=== PATIENT | male | born 1975 | race Caucasian/White ===

== ENCOUNTER 2023-05-23 15:09 | Outpatient (CLI) | payer BC, SELFPAY | END 2023-05-23 15:10 | disposition home or self-care (01) | LOC: LKVREF 15:11 | PROVIDERS: PCP Family Medicine; Visit Provider Family Medicine | DX: Z13.0 Encounter for screening for diseases of the blood and blood-forming organs and certain disorders involving the immune mechanism (principal); Z13.1 Encounter for screening for diabetes mellitus | CPT/HCPCS: 80048 ==

== ENCOUNTER 2024-01-02 08:41 | Outpatient (CLI) | payer BC, SELFPAY | END 2024-01-02 08:42 | disposition home or self-care (01) | PROVIDERS: PCP Family Medicine; Visit Provider Family Medicine | DX: Z01.818 Encounter for other preprocedural examination (principal) | CPT/HCPCS: 80048 ==

== ENCOUNTER 2024-03-25 09:04 | Outpatient (CLI) | payer BC, SELFPAY ==
--- NOTE | 2024-03-25 09:15 | MR_ITS ---
[address] [address] Phone:?[phone] Fax:?[phone] Referring Physician Information: Dieudonne Fishman M.D. [address] [facility] [address] Phone:?[phone] Fax:?[phone] Patient:Sukumar Leiva D.Zahira.B:?11/13/1974 Sex:?Male Phone:?[phone] [facility] MRN:?[id number] Exam Date:?03/25/2024 EXAM: MRI of the LEFT SHOULDER, without contrast CLINICAL: Evaluate for rotator cuff tear. COMPARISONS: X-rays dated 03/19/2024. TECHNICAL: Multiplanar multisequence MRI of the left shoulder was obtained. SEDATION: None. CONTRAST: None. FINDINGS: Rotator cuff: Supraspinatus/Infraspinatus: There is mild to moderate tendinosis of the distal supraspinatus and infraspinatus tendons. Partial interstitial insertional tearing is seen to involve the distal supraspinatus tendon extending into the junction with the anterior distal infraspinatus tendon on coronal series 5 image 9-12 involving up to 80% of the tendon thickness. Mild thin linear partial interstitial tearing also involves the remainder of the infraspinatus tendon. No significant fatty atrophy of the muscle bellies. Teres minor: No tendinosis, tear or atrophy. Subscapularis: Mild tendinosis of the tendon without evidence of significant tendon tear. No significant fatty atrophy of the muscle belly. Bursae: Subacromial-subdeltoid: Mild bursal edema. Subcoracoid: No significant bursal fluid. Coracoacromial arch: Acromion morphology: Type I to II. No os acromiale. Acromiohumeral space: Within normal limits. Coracohumeral space: Within normal limits. Biceps tendon, long head: Intraarticular and extraarticular segments intact without rupture, tendinopathy or displacement. Glenohumeral joint: Physiologic volume of joint fluid. Articular cartilage: No discrete chondral defects identified as visualized. Capsule: No convincing evidence of capsular thickening or injury. Labrum: No discrete labral tear identified on this nonarthrogram exam. No perilabral cyst identified. Bones: No suspicious marrow signal alteration, fracture or dislocation. Acromioclavicular joint: No acute injury, arthropathy, or inferior hypertrophy. IMPRESSION: 1. Mild to moderate tendinosis of the distal supraspinatus and infraspinatus tendons. High-grade partial interstitial insertional tearing of the distal supraspinatus tendon extends into the junction with the anterior distal infraspinatus tendon. Mild partial interstitial tearing of the remainder of the infraspinatus tendon. Mild tendinosis of the subscapularis tendon. 2. No additional internal derangement identified. JCZ Electronically signed on 03/25/2024 3:16:00 PM by Franklin Muhammad D.O.
== END 2024-03-25 09:05 | disposition home or self-care (01) ==
LOC: MRI 09:05
PROVIDERS: PCP Family Medicine; Visit Provider Orthopaedic Surgery Sports Medicine
DX: M25.512 Pain in left shoulder (principal); M75.102 Unspecified rotator cuff tear or rupture of left shoulder, not specified as traumatic; S46.012A Strain of muscle(s) and tendon(s) of the rotator cuff of left shoulder, initial encounter; G89.29 Other chronic pain
CPT/HCPCS: 73221

== ENCOUNTER 2024-04-10 08:18 | Outpatient (CLI) | payer BC, SELFPAY | END 2024-04-10 08:19 | disposition home or self-care (01) | PROVIDERS: PCP Family Medicine; Visit Provider Family Medicine | DX: Z01.818 Encounter for other preprocedural examination (principal); E78.5 Hyperlipidemia, unspecified; Z13.1 Encounter for screening for diabetes mellitus | CPT/HCPCS: 80048; 80061 ==

== ENCOUNTER 2024-04-22 08:57 | Day surgery (SDC) | payer BC, SELFPAY ==
[2024-04-22] VITALS (13 sets, daily range): BP systolic 109–151; BP diastolic 60–110; PULSE 62–92; RESP 20; TEMP 36.1–36.3; O2SAT 92–95; BMI 35.4
[2024-04-22] MEDS: SODIUM CHLORIDE 0.9 % (FLUSH) 10 ML SYRINGE IVF (09:30)
[2024-04-22] MEDS: LACTATED RINGERS 1000 ML 1,000 ML 100 ML IV (10:40)
[2024-04-22] MEDS: MIDAZOLAM HCL 1 MG/ML inj IVP (10:45)
[2024-04-22] MEDS: fentaNYL 100 MCG/2 ML inj IVP (10:45)
--- NOTE | 2024-04-22 10:53 | W.ANESCHARGE ---
Anesthesia Charges Start Date/Time Anesthesia Start Date: 04/22/24 Anesthesia Start Time: 11:48 Stop Date/Time Anesthesia Stop Date: 04/22/24 Anesthesia Stop Time: 13:28
--- NOTE | 2024-04-22 10:55 | SUR.PREOP ---
TIME?OUT:?1042, left shoulder PT/RN/MDA?VERIFICATION?OF?SURGICAL?SITE,?PROCEDURE,?AND?CONSENT OBTAINED?PRIOR?TO?INVASIVE?PROCEDURE.
--- NOTE | 2024-04-22 11:23 | P.NB_ITS ---
Nerve Block Nerve Block Time Seen by Provider: 10:50 Date Seen: 04/22/24 Type of block requested by surgeon for post-operative analgesia: supraclavicular Side: left Time out performed: Yes Verification of patient name: Yes Verification of date of : Yes Site marking: site marked Name of person performing procedure: Jeremias Continuous monitoring Was continuous monitoring of O2 sat, B/P, business analysis professional, recorded every 15 minutes?: Yes Procedure Checklist: sterile prep, needles and gloves Ultrasound guided. Images saved: Yes Medications given in 5ml increments after negative aspiration: Ropivicaine %: 0.5 mL: 20 Needle gauge: 22 Precedex (mcg): 25 Patient tolerated procedure well: Yes Block Charges Block Charge (with Pro Fee): Brachial Plexus Use of Ultrasound Machine for Block: Yes- US Guidance/pain block
--- NOTE | 2024-04-22 11:23 | W.ANESCHARGE ---
Anesthesia Charges Start Date/Time Anesthesia Start Date: 04/22/24 Stop Date/Time Anesthesia Stop Date: 04/22/24
[2024-04-22] MEDS: EPINEPHrine 1 MG in SODIUM CHLORIDE IRRIG SOLUTION 3,000 ML 9003 MG IRRIGATION ×2 (12:45→13:00)
--- NOTE | 2024-04-22 13:08 | PM.ORPRC ---
Procedure Note Date of procedure: 04/22/24 Procedure: PREOPERATIVE DIAGNOSES: 1. Left shoulder rotator cuff tear. 2. Left shoulder anterior labral tear. POSTOPERATIVE DIAGNOSES: 1. Left shoulder rotator cuff tear - high-grade partial-thickness supraspinatus. 2. Left shoulder anterior labral tear. NAME OF OPERATION: 1. Left shoulder arthroscopic rotator cuff repair. 2. Left shoulder arthroscopic limited glenohumeral debridement SURGEON: Dieudonne Fishman MD ACCOUNT ADMINISTRATOR: Usman BIANCHI. Of note, a skilled administrative assistant data entry was critical for this case to aide in patient positioning, suture manipulation, arm positioning, instrument positioning, and closure. ANESTHESIA: General plus preoperative supraclavicular block. EBL: 25 mL IMPLANTS: Arthrex 4.75 mm BioComposite SwiveLock suture anchor (x2) COMPLICATIONS: None evident INDICATIONS: The patient is a pleasant, 48-year-old male who has experienced left shoulder pain that has been increasing in recent time. Physical exam and imaging were consistent with a rotator cuff tear. Given their findings, as well as the weakness and pain, and inadequate response to nonoperative management, recommendation was made for surgery. FINDINGS: Exam under anesthesia revealed stable shoulder with excellent range of motion. The diagnostic arthroscopy revealed healthy chondral surfaces of the glenohumeral joint. The Subscapularis tendon was intact and with a healthy attachment. The long head of the biceps tendon was intact. The superior rotator cuff tendon was found to be torn high-grade partial-thickness manner on the articular side. The same full blunt probe penetrate through the superficial tissue readily. The labrum was degeneratively frayed in the anterior and superior aspects. No loose bodies were identified within the pouch or subscapularis recess. PROCEDURE: Following a thorough discussion of risks, benefits, and alternatives, consent was obtained and the left shoulder was marked. The patient was brought to the operating room and placed supine on the operating table. Induction of anesthesia was completed after preoperative supraclavicular block was administered in preop holding. Appropriate time out was performed identifying proper patient, site, and procedure. 2 g IV Ancef was administered within 1 hour of incision preoperatively. The left upper extremity was prepped and draped in the appropriate sterile fashion using ChloraPrep prep. This was after the patient was positioned in the beach chair with their head in neutral alignment and all bony prominences well padded. The shoulder was insufflated with 20mL of normal saline via an 18g spinal needle from a posterior approach. An 11 blade skin incision allowed a blunt trochar to be inserted and diagnostic arthroscopy to be performed with the findings as noted above. An anterior portal was established with an outside in technique. This allowed the probe to be inserted and confirm the diagnostic arthroscopic findings. The shaver was then inserted and allowed debridement of the anterior and superior labrum. Following this, the upper border subscapularis was probed and found to be stable. Thereafter, the subacromial space was entered. Here, a complete bursectomy was performed. This allowed visualization of the bursal side of the rotator cuff. A blunt probe palpated the cuff and found to have very thin tissue on the far anterior aspect. Liberator elevator was utilized to free this tissue completely and indeed it did not take much pressure. Further inspection of the supraspinatus and infraspinatus rotator cuff was performed. This identified the tear as noted above. The margins of the tear were debrided, and the greater tuberosity was debrided with a combination of the apollo cautery and shaver. After gentle decortication, a single medial and single lateral row anchor were placed. The medial row anchor had FiberTape passed through the eyelet. These 2 tails were passed independently. Brought to a single lateral row anchor. Both anchors were 4.75 mm BioComposite SwiveLock anchors. Excellent bone quality was encountered. Good tissue quality as well for the rotator cuff. Excellent reapproximation of the rotator cuff tissue. The rotator cuff showed excellent reapproximation of the greater tuberosity with good security upon probing. Prior to anchor otr refrigerated cdl truck driver removal, the eyelet sutures were tugged on for each anchor and found that the anchor had excellent stability within the bone. The shoulder was placed through range of motion and found to be stable. The rotator cuff was re-probed and found to be stable. Instruments were removed. Excess fluid was drained, closure performed with 4-0 Monocryl and Steri-Strips. Dressings were applied. Sling was applied. The patient was awoken from anesthesia and transferred to the PACU in stable condition. A skilled administrative assistant data entry was critical for this case to aid in patient positioning, limb positioning, skill to manipulate arthroscopic instruments and camera, suture management, patient safety, and closure. PLAN: 1. Elbow, forearm, wrist and digit range of motion of operative extremity as tolerated. 2. Encouraged ice. 3. Oxycodone for pain as needed. 4. Sling at all times except for ROM and showering. 5. Follow up with PA visit in 1-2 weeks for wound check. Initiate physical therapy following that visit for passive range of motion. Initiate active assisted range of motion at 3 weeks. May do pendulums now.
--- NOTE | 2024-04-22 13:13 | W.PM.H&PU ---
History & Physical Update History & Physical Update H&P Reviewed and patient assessed: No changes noted
--- NOTE | 2024-04-22 13:31 | W.ANESCHARGE ---
Anesthesia Charges Start Date/Time Anesthesia Start Date: 04/22/24 Anesthesia Start Time: 11:48 Stop Date/Time Anesthesia Stop Date: 04/22/24 Anesthesia Stop Time: 13:28
== END 2024-04-22 15:03 | disposition home or self-care (01) ==
PROVIDERS: PCP Family Medicine; Visit Provider Orthopaedic Surgery Sports Medicine
PROC: (CPT 29805; principal; 2024-04-22 11:00)
DX: M75.102 Unspecified rotator cuff tear or rupture of left shoulder, not specified as traumatic (principal); S43.432A Superior glenoid labrum lesion of left shoulder, initial encounter; G89.18 Other acute postprocedural pain
CPT/HCPCS: 29827; 29822; 01630; 64415; 76942; C1713; J0171; J0330; J2250; J2371; J2704; J2795; J3010; J7120; L3670

== ENCOUNTER 2024-09-09 10:45 | Outpatient (RCR) | payer BC, OTHER, SELFPAY ==
--- OUTSIDE RECORDS SUMMARY | 2024-06-06 15:27 | XMS_ITS | Clinical Summary ---
Author Organization [facility] Address [place], [place] [address] Care Team Providers Care Beater Out Name Role Phone Turner Renteria MD Primary Care Provider [phone] Allergies No known active allergies Medications No known medications Social History Tobacco Use Types Packs/Day Years Used Date Smoking Tobacco: Never Assessed Sex and Gender Information Value Date Recorded Sex Assigned at Not on file Legal Sex Male 3:59 PM [employer]EMPL[employer]MENT [employer] Gender Identity Not on file Sexual Orientation Not on file Obstetrics History Last Filed Vital Signs Vital Sign Reading Time Taken Comments Blood Pressure 143/83 07/18/2017 4:02 PM [employer]IST Pulse 86 07/18/2017 4:02 PM [employer]IST Temperature 36.4 C (97.5 F) 07/18/2017 4:02 PM [employer]MENT [employer]IST Respiratory Rate 18 07/18/2017 4:02 PM [employer]IST Oxygen Saturation 95% 07/18/2017 4:02 PM [employer]IST Inhaled Oxygen Concentration - - Weight 86.2 kg (190 lb) 07/18/2017 4:02 PM [employer]IST Height - - Body Mass Index - - Plan of Treatment Not on file Care Teams Beater Out Relationship Specialty Start Date End Date Turner Renteria MD PCP - General Family Practice 07/18/17
== END 2024-12-23 11:14 | disposition home or self-care (01) ==
PROVIDERS: PCP Family Medicine; Visit Provider Orthopaedic Surgery Sports Medicine
DX: Z48.89 Encounter for other specified surgical aftercare (principal); S46.012D Strain of muscle(s) and tendon(s) of the rotator cuff of left shoulder, subsequent encounter; Z51.89 Encounter for other specified aftercare
CPT/HCPCS: 97110; 97140; 97161